=== PATIENT | male | born 1990 | race Caucasian/White ===

== ENCOUNTER 2017-11-01 12:05 | Emergency (ER) | payer OTHER ==
[~2017-11-01] VITALS: Ht 180.3 cm; Wt 65.8 kg
[~2017-11-01 12:05] MED LIST: AMOXICILLIN500 MG PO; PERCOCET 5/3251 TAB PO
== END 2017-11-01 14:38 | disposition home or self-care (01) ==
LOC: ER 12:05
DX: B34.9 Viral infection, unspecified (principal); J02.9 Acute pharyngitis, unspecified